=== PATIENT | female | born 1975 ===

== ENCOUNTER 2022-07-12 07:29 | Outpatient (CLI) | payer OTHER | END 2022-07-12 23:59 | disposition home or self-care (01) | LOC: LAB 07:29 | PROVIDERS: ATTEND Orthopaedic Surgery | DX: Z01.812 Encounter for preprocedural laboratory examination (principal); Z20.822 Contact with and (suspected) exposure to COVID-19 ==

== ENCOUNTER 2022-07-13 09:24 | Outpatient (CLI) | payer OTHER ==
[2022-07-13 10:09] LABS: MEAN CORPUSCULAR HEMOGLOBIN 31.3 uug (24.7-32.8); MEAN CORPUSCULAR VOLUME 89.1 fL (75.5-95.3); PLATELET COUNT (AUTO) 256 K/uL (179-408)
[2022-07-13 10:12] LABS: *BILIRUBIN,URIN NEGATIVE (NEGATIVE); *BLOOD, URINE NEGATIVE (NEGATIVE); *CLARITY,URINE CLEAR (CLEAR); *COLOR,URINE YELLOW (YELLOW); *KETONES,URINE NEGATIVE (NEGATIVE); *UROBILINOGEN,URINE 0.2 E.U./dl (NORMAL); LEUKOCYTE ESTERASE ,URINE TRACE (NEGATIVE); NITRITE, URINE NEGATIVE (NEGATIVE); UGLUCOSE NEGATIVE (NEGATIVE)
[2022-07-13 10:24] LABS: BILIRUBIN,TOTAL 0.7 mg/dL (0.2-1.0); CREATININE 0.9 mg/dL (0.6-1.3); POTASSIUM 4.1 mmol/L (3.5-5.1); TOTAL PROTEIN, SERUM 7.4 g/dL (6.4-8.2)
[2022-07-13 15:10] LABS: BACTERIA,URINE NONE SEEN /HPF (NONE SEEN); RBC,URINE NONE SEEN /HPF (0-3); SQUAMOUS EPITHELIAL CELL,UR FEW /HPF (NONE SEEN); WBC,URINE 0-3 /HPF (0-3)
== END 2022-07-13 23:59 | disposition home or self-care (01) ==
LOC: LAB 09:24
PROVIDERS: ATTEND Orthopaedic Surgery
DX: Z01.818 Encounter for other preprocedural examination (principal); G56.02 Carpal tunnel syndrome, left upper limb; H93.3X2 Disorders of left acoustic nerve
CPT/HCPCS: 36415; 85025; 85730

== ENCOUNTER 2022-07-14 07:14 | Day surgery (SDC) | payer OTHER ==
[2022-07-14] MEDS ORDERED: SEVOFLURANE 250 ML BOTTLE IH ONE (07:15)
[2022-07-14] MEDS ORDERED: DEXAMETHASONE SOD PHOSPHATE 4 MG INJ IV ONE (07:15)
[2022-07-14] MEDS ORDERED: KETOROLAC TROMETHAMINE 30 MG INJ IM ONE (07:15)
[2022-07-14] MEDS ORDERED: LIDOCAINE-MPF 2% 5 ML VIAL IJ ONE (07:15)
[2022-07-14] MEDS ORDERED: CEFAZOLIN 1 G VIAL IM ONE (07:15)
[2022-07-14] MEDS ORDERED: PROPOFOL 200 MG/20 ML BOTTLE IV ONE (07:15)
[2022-07-14] MEDS ORDERED: ONDANSETRON 4 MG/2 ML VIAL IV ONE (07:15)
[2022-07-14] MEDS ORDERED: ACETAMINOPHEN/CODEINE 300-30 MG TABLET PO ONE (07:15)
[2022-07-14 07:35] LABS: *URINE HCG, QUAL NEG (NEGATIVE)
[2022-07-14] MEDS ORDERED: BUPIVACAINE PF 0.5% 30 ML VIAL ONE (07:35)
[2022-07-14] MEDS ORDERED: FENTANYL CITRATE 100 MCG/2 ML AMPUL ONE (08:41)
== END 2022-07-14 12:15 | disposition home or self-care (01) ==
LOC: DS 07:14
PROVIDERS: ATTEND Orthopaedic Surgery
DX: G56.02 Carpal tunnel syndrome, left upper limb (principal); Z87.440 Personal history of urinary (tract) infections; Z79.899 Other long term (current) drug therapy; Z98.890 Other specified postprocedural states
CPT/HCPCS: 64721; 84703; J3490; J3010; J7040; A4649; A4663